=== PATIENT | female | born 1990 | race Caucasian/White ===

== ENCOUNTER 2018-04-11 11:18 | Emergency (ER) | payer OTHER ==
[~2018-04-11] VITALS: Ht 160 cm; Wt 73.5 kg
[2018-04-11] MEDS ORDERED: CEFADROXIL500 MG (11:38)
[2018-04-11] MEDS ORDERED: OBSTETRIX ONE1 EACH (11:38)
== END 2018-04-11 15:01 | disposition home or self-care (01) ==
LOC: ER 11:18
DX: R30.0 Dysuria (principal)

== ENCOUNTER 2018-10-06 04:11 | Inpatient (IN) | payer OTHER ==
[~2018-10-06] VITALS: Ht 160 cm; Wt 81.6 kg
[~2018-10-06 04:11] MED LIST: CEFADROXIL500 MG; OBSTETRIX ONE1 EACH
[2018-10-06] MEDS ORDERED: PRENATABS RX T1 EACH PO (04:22)
== END 2018-10-08 11:58 | disposition home or self-care (01) | DRG 805 ==
LOC: OB/GYN 04:11 → LDR 04:11 → OB/GYN 16:14
PROVIDERS: ADMIT Obstetrics & Gynecology
PROC: 10E0XZZ Delivery of Products of Conception, External Approach (ICD-10-PCS; principal; 2018-10-06)
PROC: 3E033VJ Introduction of Other Hormone into Peripheral Vein, Percutaneous Approach (ICD-10-PCS; 2018-10-06)
PROC: 0HQ9XZZ Repair Perineum Skin, External Approach (ICD-10-PCS; 2018-10-06)
PROC: 4A1HXCZ Monitoring of Products of Conception, Cardiac Rate, External Approach (ICD-10-PCS; 2018-10-06)
DX: O70.0 First degree perineal laceration during delivery (principal); O60.14X0 Preterm labor third trimester with preterm delivery third trimester, not applicable or unspecified; Z37.0 Single live birth; Z3A.34 34 weeks gestation of pregnancy